=== PATIENT | female | born 1980 | race African-American/Black ===

== ENCOUNTER 2020-09-17 14:02 | Emergency (ER) | payer OTHER ==
[~2020-09-17] VITALS: Ht 157.5 cm; Wt 85.0 kg
[2020-09-17 14:13] VITALS: BP 144/78
[2020-09-17] MEDS ORDERED: HYDROCODONE/ACETAMINOPHEN 5/325MG TABLET PO ONE (16:00)
[2020-09-17] MEDS ORDERED: ONDANSETRON 4MG ODT PO ONE (16:00)
[2020-09-17] MEDS ORDERED: TRAM50TA3 MT (16:42)
[2020-09-17] MEDS ORDERED: IBUP-2030 MT (16:42)
== END 2020-09-17 17:11 | disposition home or self-care (01) ==
LOC: ER 14:02
DX: S90.121A Contusion of right lesser toe(s) without damage to nail, initial encounter (principal); W22.8XXA Striking against or struck by other objects, initial encounter; Y93.89 Activity, other specified; Y92.89 Other specified places as the place of occurrence of the external cause
CPT/HCPCS: 73630; 81025; 99283; Q0162; Z7610